=== PATIENT | female | born 1935 | race Caucasian/White ===

== ENCOUNTER → 2017-04-23 | Day surgery (SDC) | payer OTHER ==
[2017-03-29 15:35] VITALS: Ht 165.1 cm; Wt 68.2 kg
[~2017-04-23] VITALS: Ht 165.1 cm; Wt 68.2 kg
[~2017-04-23] MED LIST: ACETAMINOPHEN 325 MG TAB PO PRN; ALL100 PO; AMVISC PLUS 0.8ML SYRINGE INT OCU ONE; APR50 PO; ASCA500 PO; ASPI81TA28 PO; ATEN50TA8 PO; ATROPINE SULFATE 0.1 MG/ML 5ML SYR IV PRN; ATROPINE SULFATE 1% OP SOLN 2 ML BTL ONE; AcetylCHOLine CHL OP SOL 1:100 2 ML BTL ONE; BRIMONIDINE TART 0.2% OP SOLN PER DROP CHARGE ONE; CHOL400T PO; CZR50 PO; DOCU-94 PO; EpHEDrine SULFATE INJ 50 MG/ML AMP IV PRN; FENTANYL CITRATE INJ 50 MCG/1 ML 2 ML VIAL ONE; HEALON 10MG/ML 0.85 ML SYR INSTIL ONE; LACTATED RINGER'S 1000ML 500 ML IV SCH; LIDOCAINE 1% (PF) TOP ONE; LIDOCAINE 3.5% OPH GEL PER APPLICATION CHARGE OPL SCH; LIDOCAINE 4% OP SOLN DROP CHARGE ONE; LIDOCAINE 4% OP SOLN DROP CHARGE OPL SCH; LIDOCAINE HCL 1% MPF 2 ML VIAL ONE; MIDAZOLAM HCL 1 MG/ML 2ML VIAL ONE; MOXIFLOXACIN OPH SOLN PER DROP CHARGE ONE; MULT60CA PO; ONDANSETRON INJ 2 MG/ML 2 ML VIAL IV STA; ONDANSETRON INJ 2 MG/ML 2 ML VIAL ONE; POLYSOL4 OPB; POTA99TA PO; POVIDONE-IODINE OP SOLN 30 ML BTL ONE; PRED20TA PO; PROPARACAINE 0.5% OP SOLN PER DROP CHARGE OPL SCH; SODI2SOL OPB; STERILE IRRIGATING SOLUTION (BSS) 15ML OPL ONE; TOBRAMYCIN/DEXAMETHASONE OPH OINT PER APPLN CHARGE ONE; VITACAP37 PO
[2017-04-23] MEDS: MOXIFLOXACIN OPH SOLN PER DROP CHARGE OPL SCH ×3 (10:03→10:23)
--- NOTE | 2017-04-23 10:24 | History & Physical Bridge - [place] ---
H&P Re-Evaluation Bridge Note: I have examined the patient, reviewed the History & Physical and in the interval since the performance of the History & Physical I have noted the following changes of clinical significance: No changes noted
--- NOTE | 2017-04-23 12:03 | [facility] Post Operative Brief Note ---
Immediate Operative Summary Operative Date Apr 23, 2017. Pre-Operative Diagnosis Left Eye Endothelial Corneal Dystrophy Post-Operative Diagnosis Same Procedure(s) Performed Left Eye Descements Stripping Automated Endothelial Keratoplasty Surgeon Dr. Poncho Presley Bar Back Surgeon(s) None Estimated Blood Loss 0 Findings fuchs corneal dystrophy left eye Specimens Culture of Cornea sent Complication(s) None Disposition Recovery Room / PACU
--- NOTE | 2017-04-23 12:03 | Discharge Instructions-SurgCtr ---
Discharge Instructions Date of Service Apr 23, 2017. Visit Reason for Visit: Left Eye Endothelial Corneal Dystrophy Discharge Discharge Diagnosis / Problem: fuchs corneal dystrophy left eye Discharge Goals Goal(s): Improve function Activity Recommendations Activity Limitations: per Instructions/Follow-up section Lifting Limitations: none Anesthesia . Post Anesthesia Instructions: If you have had General Anesthesia or IV Sedation: * Do not drive today. * Resume driving when surgeon permits. * Do not make important decisions or sign legal documents today. * Call surgeon for: 1. Temperature elevations greater than 101 degrees F. 2. Uncontrollable pain. 3. Excessive bleeding. 4. Persistent nausea and vomiting. 5. Medication intolerance (nausea, vomiting or rash). * For nausea and vomiting use only clear liquids such as: tea, soda, bouillon until nausea subsides, then gradually increase diet as tolerated. * If you have any concerns or questions, call your surgeon's office. If physician is unavailable and it is an emergency, call 911 or go to the nearest emergency room. . Instructions / Follow-Up Instructions / Follow-Up ACTIVITY RECOMMENDATIONS: * Bedrest (eyes to the loree) MEDICATIONS: Resume previous medications unless instructed otherwise by your surgeon. Eye drops (today and tomorrow): Cipro - one drop operative eye 4 times daily Prednisolone 1% - one drop operative eye 4 times daily SPECIAL CARE INSTRUCTIONS: * If any problems or concerns, please call Dr. Presley's office at . * Keep plastic shield taped over eye to sleep at night. * Keep plastic shield taped over eye except to administer eye drops. * Keep plastic shield on until office visit the following day. FOLLOW UP VISIT: Follow-up with Dr. Presley in the [place] office as scheduled. If not already scheduled, please call the office at . Diet Recommendations Home Diet: resume previous diet Procedures Procedures Performed: Left Eye Descements Stripping Automated Endothelial Keratoplasty Pending Studies Studies pending at discharge: yes List of pending studies: cornea donor culture Medical Emergencies . Who to Call and When: Medical Emergencies: If at any time you feel your situation is an emergency, please call 911 immediately. . Non-Emergent Contact Non-Emergency issues call your: [employer] Specialist Manager . . "Provider Documentation" section prepared by Aureliano Presley. .
[2017-04-23 12:06] VITALS: TEMP 37
--- NOTE | 2017-04-23 13:11 | OPERATIVE REPORT ---
DATE OF OPERATION: 04/23/2017 PREOPERATIVE DIAGNOSIS: Fuchs corneal dystrophy, left eye. POSTOPERATIVE DIAGNOSIS: Same. PROCEDURE PERFORMED: Descemet stripping automated endothelial keratoplasty, left eye. COMPLICATIONS: None. ESTIMATED BLOOD LOSS: None. ANESTHESIA: Local with sedation DESCRIPTION OF PROCEDURE: After informed consent was obtained in the holding area, the patient was wheeled back to the operating room where cardiac monitoring leads and oxygen by nasal cannula was administered by anesthesia. Gentle IV sedation was given and the patient's left eye was prepped and draped in usual sterile fashion. Attention was first turned to the donor cornea, which was placed endothelial side up on the trephine and trephinated with an 8.0 mm trephine blade by myself. It was then covered in Optisol and set aside. A wire lid speculum was then placed in the left eye and the operating microscope was swung into position. Using 0.12 forceps and a supersharp blade, a paracentesis port was made at the 5 o'clock position on the patient's left eye. 1% nonpreserved lidocaine was injected into the anterior chamber for anesthesia. A 2.2 mm keratome blade was then used to make a shelved clear cornea incision at the 3 o'clock position on the patient's left eye. The corneal surface was then marked using the previously used trephine for an 8.0 mm diameter. Anterior chamber was then filled with Healon and a reversed [place] hook was used to score Descemet's membrane around the marked perimeter. A Descemet stripper was then used to remove the Descemet's membrane from within the marked area. Stromal adding machine servicer was then used to roughen the stromal bed in the periphery of the stripped area. The primary incision was then marked for 4 mm and widened to that width. Irrigation-aspiration handpiece was then used to remove the viscoelastic material from the eye. The donor cornea was then placed endothelial side up on the host cornea and a drop of Healon was placed on it. It was then loaded onto and into the EndoSerter. The EndoSerter was then used to inject the corneal graft into the anterior chamber of the patient's left eye. A single 10-0 nylon suture was placed through the main incision and the graft was unfolded underneath BSS and air. The graft was centered using a [place] [employer] roller and a complete air fill of the eye was held for 10 minutes. Healon was used to cover the cornea during this time. After the 10 minutes elapsed, the Healon was rinsed off the anterior chamber, 3 drops of atropine were placed on the eye and a [employer] roller was used to milk the interface. Cornea was then recovered with Healon and another 10 minutes elapsed. After the second 10 minutes, the Healon was rinsed off the eye again and a partial air fluid exchange was done leaving behind a 50% air fill. ReSure sealant was then placed over the main incision and the paracentesis port for extra wound integrity. The wire lid speculum was then removed from the eye, Vigamox and TobraDex ointment were placed on the eye and the eye was shielded. The patient tolerated the procedure well and was taken to recovery area to lay flat for an hour prior to discharge. I attest to the content of the Intraoperative Record and any orders documented therein. Any exception s are noted below.
[2017-04-23 13:26] VITALS: BP 190/85; PULSE 56; O2SAT 96
--- NOTE | 2017-04-23 13:34 | Anesthesia Progress Nt - [facility] ---
Anesthesia Post Op Note Date & Time Apr 23, 2017 at 13:33 Vital Signs Pain Intensity: 0 Vital Signs Past 12 Hours Date Time Temp Pulse Resp B/P (MAP) Pulse Ox O2 Delivery O2 Flow Rate FiO2 04/23/17 13:26 56 18 190/85 (120) 96 Room Air 04/23/17 12:56 59 16 186/84 (118) 95 Room Air 04/23/17 12:26 60 16 180/82 (114) Room Air 04/23/17 12:06 37.0 59 14 176/83 (114) 94 Room Air 04/23/17 10:53 176/78 (110) 04/23/17 09:56 36.5 65 20 203/103 (136) 95 Room Air 186/116 (139) Notes Mental Status: alert / awake / arousable, participated in evaluation Pt Amnestic to Procedure: Yes Nausea / Vomiting: adequately controlled Pain: adequately controlled Airway Patency, RR, SpO2: stable & adequate BP & HR: stable & adequate Hydration State: stable & adequate Anesthetic Complications: no major complications apparent HTN relatively unchanged from preop values. OK for home discharge.
== END | disposition home or self-care (01) ==
LOC: X.SURG 09:31
PROVIDERS: ATTEND Ophthalmology
DX: H18.59 Other hereditary corneal dystrophies (principal); H18.20 Unspecified corneal edema; I10 Essential (primary) hypertension; M81.0 Age-related osteoporosis without current pathological fracture; N28.9 Disorder of kidney and ureter, unspecified; I34.1 Nonrheumatic mitral (valve) prolapse; Z85.41 Personal history of malignant neoplasm of cervix uteri; Z96.649 Presence of unspecified artificial hip joint